=== PATIENT | male | born 1955 | race Caucasian/White ===

== ENCOUNTER 2022-08-14 10:00 | Outpatient (RCR) | payer MEDICARE, BC, SELFPAY ==
--- NOTE | 2022-03-25 14:33 | URNOTE ---
Eligibility Determination note by Milla Fulton 09/18/21:Request received from [facility] for prior authorization of Infliximab J1745. Patient carries Medicare as primary insurance. Per CMS.gov LCD [id number] no prior authorization is required for Infliximab. Services are based on medical necessity and follow Medicare guidelines.
[2022-03-28 10:31] VITALS: BP 104/73; PULSE 104; RESP 16; TEMP 36.1; O2SAT 96
[2022-03-28] MEDS: 0.9 % SODIUM CHLORIDE 250 ml 250 ML 35 ML IV (10:56)
[2022-06-20 10:28] VITALS: BP 117/78; PULSE 123; RESP 16; TEMP 36.1; O2SAT 94
[2022-08-14 10:18] VITALS: BP 114/80; PULSE 78; RESP 16; TEMP 35.7; O2SAT 98
== END 2022-09-24 23:59 | disposition home or self-care (01) ==
LOC: CCIC 10:00
PROVIDERS: Visit Provider Internal Medicine Gastroenterology
DX: K50.90 Crohn's disease, unspecified, without complications (principal)
CPT/HCPCS: 96413; 96415; J7050

== ENCOUNTER 2023-03-01 10:00 | Outpatient (RCR) | payer MEDICARE, BC, SELFPAY ==
--- NOTE | 2022-10-08 09:37 | ONC.NURNOTE ---
Patient called to inquire whether he would be able to receive his remicade infusion following donation of platelets today at noon. There is no medical reason why this would be counter-indicated, but if patient is not feeling well afterwards it would be appropriate to delay treatment if desired.
[2022-10-11 10:20] VITALS: BP 131/79; PULSE 104; RESP 20; TEMP 36.2; O2SAT 97
--- NOTE | 2022-12-03 15:05 | URNOTE ---
Request received for authorization for Infliximab (Remicade) (J1745). Prior authorization is not required as services are based on medical necessity and follow Medicare guidelines.
[2022-12-06 10:24] VITALS: BP 120/82; PULSE 109; RESP 16; TEMP 35.8; O2SAT 95
[2022-12-06] MEDS: 0.9 % SODIUM CHLORIDE 250 ml 250 ML 35 ML IV (11:46)
--- NOTE | 2023-02-19 11:03 | URNOTE ---
Request received for authorization for Infliximab (Remicade) (J1745). Prior authorization is not required as services are based on medical necessity and follow Medicare guidelines.
[2023-03-01 10:03] VITALS: BP 120/80; PULSE 91; RESP 16; TEMP 36.2; O2SAT 96
[2023-03-01] MEDS: 0.9 % SODIUM CHLORIDE 250 ml 250 ML 35 ML IV (10:20)
== END 2023-04-09 23:59 | disposition home or self-care (01) ==
LOC: CCIC 10:00
PROVIDERS: Visit Provider Internal Medicine Gastroenterology
DX: K50.90 Crohn's disease, unspecified, without complications (principal)
CPT/HCPCS: 96365; 96366; 96413; 96415; J7050

== ENCOUNTER 2023-09-12 10:00 | Outpatient (RCR) | payer MEDICARE, BC, SELFPAY ==
--- NOTE | 2023-05-02 11:51 | ONC.NURNOTE ---
Called patient to reschedule as the original date was overbooked. patient able to change dates to 05/10.
[2023-05-10 10:06] VITALS: BP 130/79; PULSE 95; RESP 16; TEMP 35.8; O2SAT 97
[2023-07-12] MEDS: 0.9 % SODIUM CHLORIDE 250 ml 250 ML 35 ML IV (11:01)
[2023-07-12] MEDS: SODIUM CHLORIDE 0.9 % (FLUSH) 10 ML SYRINGE IVF (11:24)
[2023-09-12 10:19] VITALS: BP 119/69; PULSE 107; RESP 16; TEMP 35.9; O2SAT 96
[2023-09-12] MEDS: SODIUM CHLORIDE 0.9 % (FLUSH) 10 ML SYRINGE IVF (10:35)
[2023-09-12] MEDS: 0.9 % SODIUM CHLORIDE 250 ml 250 ML 30 ML IV (10:35)
== END 2023-11-06 23:59 | disposition home or self-care (01) ==
LOC: CCIC 10:00
PROVIDERS: PCP Family Medicine; Referring Provider Family Medicine; Visit Provider Internal Medicine Gastroenterology
DX: K50.90 Crohn's disease, unspecified, without complications (principal)
CPT/HCPCS: 96413; 96415; J7050

== ENCOUNTER 2024-02-27 10:00 | Outpatient (RCR) | payer MEDICARE, BC, SELFPAY ==
[2023-11-07 10:17] VITALS: BP 121/82; PULSE 96; RESP 16; TEMP 35.9; O2SAT 95
[2023-11-07] MEDS: 0.9 % SODIUM CHLORIDE 250 ml 250 ML 35 ML IV (10:39)
[2023-11-07] MEDS: TUBING PRIMARY IV (10:50)
[2023-11-07] MEDS: INFLIXIMAB IV (10:50)
[2023-11-07] MEDS: [UNRECOGNIZED DRUG - OTHER] IV (10:50)
[2023-11-07] MEDS: SODIUM CHLORIDE 0.9 % (FLUSH) 10 ML SYRINGE IVF (12:22)
[2024-01-02 10:20] VITALS: BP 110/70; PULSE 108; RESP 16; TEMP 36.3; O2SAT 95
[2024-01-02] MEDS: 0.9 % SODIUM CHLORIDE 250 ml 250 ML 35 ML IV (10:30)
[2024-01-02] MEDS: INFLIXIMAB IV (11:00)
[2024-01-02] MEDS: TUBING PRIMARY IV (11:00)
[2024-01-02] MEDS: [UNRECOGNIZED DRUG - OTHER] IV (11:00)
[2024-01-02] MEDS: SODIUM CHLORIDE 0.9 % (FLUSH) 10 ML SYRINGE IVF (12:22)
--- NOTE | 2024-01-09 11:14 | URNOTE ---
Prior auth is not required for Remicade ([id number]). Pt has medicare primary. Services are based on medical necessity and follow medicare guidelines
[2024-02-27 10:11] VITALS: BP 114/75; PULSE 104; RESP 16; TEMP 36.1; O2SAT 93
[2024-02-27] MEDS: INFLIXIMAB IV (10:46)
[2024-02-27] MEDS: TUBING PRIMARY IV (10:46)
[2024-02-27] MEDS: [UNRECOGNIZED DRUG - OTHER] IV (10:46)
[2024-02-27] MEDS: 0.9 % SODIUM CHLORIDE 250 ml 250 ML 35 ML IV (10:48)
[2024-02-27] MEDS: SODIUM CHLORIDE 0.9 % (FLUSH) 10 ML SYRINGE IVF (10:48)
== END 2024-05-05 23:59 | disposition home or self-care (01) ==
LOC: CCIC 10:00
PROVIDERS: PCP Family Medicine; Referring Provider Family Medicine; Visit Provider Internal Medicine Gastroenterology
DX: K50.90 Crohn's disease, unspecified, without complications (principal)
CPT/HCPCS: 96413; 96415; J7050

== ENCOUNTER 2024-09-09 13:30 | Outpatient (RCR) | payer MEDICARE, BC, SELFPAY ==
[2024-05-07 10:20] VITALS: BP 109/69; PULSE 94; RESP 16; TEMP 36.3; O2SAT 95
[2024-05-07] MEDS: 0.9 % SODIUM CHLORIDE 250 ml 250 ML 30 ML IV (10:58)
[2024-05-07] MEDS: [UNRECOGNIZED DRUG - OTHER] IV (10:58)
[2024-05-07] MEDS: TUBING PRIMARY IV (10:58)
[2024-05-07] MEDS: INFLIXIMAB IV (10:58)
[2024-07-02 10:17] VITALS: BP 108/75; PULSE 96; RESP 16; TEMP 35.9; O2SAT 94
[2024-07-02] MEDS: INFLIXIMAB IV (10:47)
[2024-07-02] MEDS: TUBING PRIMARY IV (10:47)
[2024-07-02] MEDS: [UNRECOGNIZED DRUG - OTHER] IV (10:47)
[2024-09-09 13:41] VITALS: BP 108/72; PULSE 97; RESP 16; TEMP 36.4; O2SAT 94
[2024-09-09] MEDS: [UNRECOGNIZED DRUG - OTHER] IV (14:15)
[2024-09-09] MEDS: TUBING PRIMARY IV (14:15)
[2024-09-09] MEDS: INFLIXIMAB IV (14:15)
== END 2024-11-03 23:59 | disposition home or self-care (01) ==
LOC: CCIC 13:30
PROVIDERS: PCP Family Medicine; Referring Provider Family Medicine; Visit Provider Clinical Nurse Specialist
DX: K50.90 Crohn's disease, unspecified, without complications (principal)
CPT/HCPCS: 96413; 96415; J1745; J7050

== ENCOUNTER 2025-02-25 11:30 | Outpatient (RCR) | payer MEDICARE, BC, SELFPAY ==
[2024-11-04 10:46] VITALS: BP 113/67; PULSE 91; RESP 18; TEMP 36.6; O2SAT 95
[2024-11-04] MEDS: TUBING PRIMARY IV (11:31)
[2024-11-04] MEDS: [UNRECOGNIZED DRUG - OTHER] IV (11:31)
[2024-11-04] MEDS: INFLIXIMAB IV (11:31)
[2024-12-30] MEDS: INFLIXIMAB IV (10:58)
[2024-12-30] MEDS: TUBING PRIMARY IV (10:58)
[2024-12-30] MEDS: [UNRECOGNIZED DRUG - OTHER] IV (10:58)
[2025-02-25 11:26] VITALS: BP 115/72; PULSE 91; RESP 16; TEMP 36.3; O2SAT 95
[2025-02-25] MEDS: INFLIXIMAB IV (12:20)
[2025-02-25] MEDS: TUBING PRIMARY IV (12:20)
[2025-02-25] MEDS: [UNRECOGNIZED DRUG - OTHER] IV (12:20)
== END 2025-05-03 23:59 | disposition home or self-care (01) ==
LOC: CCIC 11:30
PROVIDERS: PCP Family Medicine; Referring Provider Family Medicine; Visit Provider Clinical Nurse Specialist
DX: K50.90 Crohn's disease, unspecified, without complications (principal)
CPT/HCPCS: 96413; 96415; J1745; J7050